=== PATIENT | male | born 1950 | race Caucasian/White ===

== ENCOUNTER 2023-07-17 12:53 | Emergency (ER) | payer OTHER ==
[2023-07-17 13:16] VITALS: PULSE 47; RESP 18; BMI 28.3
[2023-07-17 14:22] LABS: BASO % 1.1 % (0-2.0); EOS % 3.4 % (0-4.5); HEMATOCRIT 44.5 % (35.4-49); HEMOGLOBIN 14.4 GM/dL (11.7-16.9); LYMPH % 27.2 % (8-40); MCHC 32.3 g/dl (32.0-35.9); MEAN CELL VOLUME 89.7 fl (80-96); MEAN PLT VOLUME 8.4 fl (7.5-11.1); MONO % 8.5 % (3.8-10.2); NEUT % 59.8 % (42.8-82.8); PLATELET COUNT 185 10^3/uL (134-434); RBC 4.96 M/mm3 (4.00-5.60); RDW 14.1 % (11.9-15.9); WHITE BLOOD COUNT 5.8 K/mm3 (4.0-10.0)
[2023-07-17 14:50] LABS: POTASSIUM 4.9 mmol/L (3.5-5.1)
[2023-07-17 14:52] LABS: BLOOD UREA NITROGEN 20.2 mg/dL (7-18); CALCIUM 8.4 mg/dL (8.5-10.1)
[2023-07-17 14:53] LABS: ALBUMIN 3.2 g/dl (3.4-5.0)
[2023-07-17 14:55] LABS: CREATININE 0.8 mg/dL (0.55-1.3)
[2023-07-17 14:57] LABS: BILIRUBIN,TOTAL 0.5 mg/dL (0.2-1)
[2023-07-17 14:58] LABS: TOT PROT 5.9 g/dl (6.4-8.2)
[2023-07-17 15:16] VITALS: BP 151/92; TEMP 98
== END 2023-07-17 15:17 | disposition home or self-care (01) ==
LOC: JER 12:53
DX: M79.602 Pain in left arm (principal); G89.29 Other chronic pain; R00.1 Bradycardia, unspecified; H91.93 Unspecified hearing loss, bilateral
CPT/HCPCS: 36415; 71046-TC-FY; 80053; 84484; 85025; 93005; 93010; 99285-25